=== PATIENT | female | born 1985 | race Caucasian/White ===

== ENCOUNTER 2021-08-01 10:09 | Inpatient (IN) ==
[2021-08-01] MEDS ORDERED: OXYTOCIN 30 UNITS/500 ML BAG IV PRN ×2 (10:37→17:10)
--- NOTE | 2021-08-01 10:43 | History & Physical Report ---
Date of Service August 01, 2021 Assessment & Plan (1) Insulin dependent diabetes mellitus: (2) with 39 completed weeks gestation: Plan: admit for labor, gbs neg. expectant management. epidural on demand. arom/pit as indicated. History of Present Illness Chief Complaint: contracctions Primary Care Provider: Leslie Cordero DO Patient is a 35yowf with iup at 39 3/7 weeks with onset of contractions this am q 5 min, painful. no lof/vb. +fm. complicated by insulin requiring GDM. Last growth us on 07/23 showed efw 97%. Patient counseled about shoulder dystocia and scheduled for induction 08/02. otherwise uncomplicated labs--O+/ab-/ri/rprnr/hepb-/hiv-/gc/ct-/ cf/sma -/low risk panorama /gbs neg Allergies Allergy/AdvReac Type Severity Reaction Status Date / Time No Known Drug Allergies Allergy Unknown Verified 07/30/21 16:10 Home Medications Medication Instructions Recorded Confirmed Type pantoprazole 40 mg tablet,delayed 40 mg PO DAILY 09/26/19 07/30/21 History release prenat.vits,lakeshia,rhd-lluo-senfz 1 tab PO DAILY 12/21/20 07/30/21 History acetone (urine) test (Ketone Urine #50 ea 01/15/21 07/30/21 Rx Test) blood sugar diagnostic (OneTouch #150 ea 01/20/21 07/30/21 Rx Ultra Blue Test Strip) lancets 33 gauge (OneTouch Delica #150 ea 01/20/21 07/30/21 Rx Lancets) promethazine 25 mg tablet 25 mg PO TID PRN #20 tab 01/22/21 07/30/21 Rx insulin NPH isoph U-100 human 100 8 unit SUBCUT QPM #15 ml 07/01/21 07/30/21 Rx unit/mL (3 mL) subcutaneous pen (Novolin N Flexpen) insulin aspart U-100 100 unit/mL 5 unit SUBCUT BID #15 ml 07/01/21 07/30/21 Rx (3 mL) subcutaneous pen (Novolog Flexpen U-100 Insulin aspart) pen needle, diabetic 32 gauge x #150 ea 07/01/21 07/30/21 Rx 5/32" (BD Ultra-Fine Opal Pen Needle) amoxicillin PO 07/30/21 07/30/21 History Patient History Medical History Epilepsy Essential tremor GERD (gastroesophageal reflux disease) Gestational hypertension History of gestational hypertension Hx of varicella Obesity Oral contraceptive pill surveillance Surgical History H/O eye surgery Family History Mother Diabetes Hypertension Gestational diabetes Father Hypertension Asthma Grandmother (Maternal) Hypertension Stroke Myocardial infarction Bleeding disorder Grandmother (Paternal) Stroke Myocardial infarction Diabetes Hypertension Grandfather (Paternal) Diabetes Hypertension Aunt Thyroid disease Family/Other Cleft lip Other Cervical cancer Denies family history of Ovarian cancer Breast cancer Colorectal cancer Social History (Updated 12/21/20 @ 08:57 by Teresa Hernandez) Smoking Status: Never smoker Hx Alcohol Use: No Hx Substance Use: No Preferred Language: Turkmen Developer Architect Required: No Beliefs That Will Affect Care: None marital status: marital status details: Moise Daley (30) [phone] Current Living Situation: Spouse and Family Current Living Situation Comment: lives with spouse, daughter, 2 dogs current occupational status: employed 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 Feels Safe at Home: Yes Assistive Devices: Glasses OB History g1--11/25, , 7#, gdm BUFFER INFLATED PAD History noncontributory Physical Exam Constitutional: WD/WN, vitals as above Gastrointestinal (Abdomen): soft, gravid, nt Psychiatric: A+Ox3, euthymic affect Genitourinary: cx--5+/80/-2, bulging bag toco--q3-5min efm--140 with mod variability, small accels, no decels Results & Data ([facility]) Vital Signs (Past 12 Hours) Vital Signs Pulse BP 08/01/21 10:31 88 162/90 H Coding Level of Care Code None Diagnoses Insulin dependent diabetes mellitus with 39 completed weeks gestation Z3A.39
[2021-08-01 11:03] LABS: Hematocrit (blood only) 35.5 % (37-47); Hemoglobin 11.8 g/dL (12.0-16.0); Mean Corpuscular Hemoglobin 27.6 pg (25-34); Mean Corpuscular Hgb Conc 33.2 g/dL (32-36); Mean Corpuscular Volume 82.9 fL (80-100); Mean Platelet Volume 11.4 fL (7.4-10.4); Platelet Count 207 K/uL (130-400); RDW Coefficient of Variation 13.3 % (11.5-14.5); RDW Standard Deviation 39.8 fL (36.4-46.3); Red Blood Count 4.28 M/uL (4.2-5.4)
[2021-08-01] MEDS: LACTATED RINGER'S 1,000 ML IV PRN ×3 (11:30→17:12)
[2021-08-01] MEDS ORDERED: fentaNYL citrate 100 MCG/2 ML VIAL ONE (12:33)
[2021-08-01] MEDS ORDERED: ePHEDrine sulfate 50 MG/ML AMP ONE (12:33)
[2021-08-01] MEDS ORDERED: SODIUM CHLORIDE 0.9% INJ 10 ML VIAL ONE ×2 (12:33→20:45)
[2021-08-01] MEDS ORDERED: fentaNYL 2MCG/ML ROPIVACAINE 1.25MG/ML 100 ML BAG EPI ONE (12:33)
[2021-08-01] MEDS ORDERED: BUPIVACAINE 0.25% 30 ML VIAL ONE ×2 (12:33→20:46)
--- NOTE | 2021-08-01 12:51 | Anesthesiology Consultation ---
Date of Service August 01, 2021 Assessment & Plan (1) Encounter for pre-operative examination: Chart Review Chart Review: Acceptable Risk for Surgery and Patient NOT seen in Pre Admission Testing Consults Requested none Proposed Anesthesia Risk / Benefits Reviewed With: PT / POA / Parent / Guardian, Accepts Plan and Informed Consent Obtained History Allergies Allergy/AdvReac Type Severity Reaction Status Date / Time No Known Drug Allergies Allergy Unknown Verified 07/30/21 16:10 Medications Home Medications Medication Instructions Recorded Confirmed Last Taken pantoprazole 40 mg tablet,delayed 40 mg PO DAILY 09/26/19 07/30/21 06/24/21 07:00 release prenat.vits,lakeshia,civ-kmyq-rvleg 1 tab PO DAILY 12/21/20 07/30/21 06/24/21 07:00 acetone (urine) test (Ketone Urine #50 ea 01/15/21 07/30/21 Unknown Test) blood sugar diagnostic (OneTouch #150 ea 01/20/21 07/30/21 Unknown Ultra Blue Test Strip) lancets 33 gauge (OneTouch Delica #150 ea 01/20/21 07/30/21 Unknown Lancets) promethazine 25 mg tablet 25 mg PO TID PRN #20 tab 01/22/21 07/30/21 Unknown insulin NPH isoph U-100 human 100 8 unit SUBCUT QPM #15 ml 07/01/21 07/30/21 Unknown unit/mL (3 mL) subcutaneous pen (Novolin N Flexpen) insulin aspart U-100 100 unit/mL 5 unit SUBCUT BID #15 ml 07/01/21 07/30/21 Unknown (3 mL) subcutaneous pen (Novolog Flexpen U-100 Insulin aspart) pen needle, diabetic 32 gauge x #150 ea 07/01/21 07/30/21 Unknown 5/32" (BD Ultra-Fine Opal Pen Needle) amoxicillin PO 07/30/21 07/30/21 Unknown Past Medical History Medical History Epilepsy Essential tremor GERD (gastroesophageal reflux disease) Gestational hypertension History of gestational hypertension Hx of varicella Obesity Oral contraceptive pill surveillance gestational diabetes sinus infection being treated with amoxicillin since Exercise / Class Metabolic Activity II 4-5 Yardwork/Stairs/Walk up hill Past Family History Family History Mother Diabetes Hypertension Gestational diabetes Father Hypertension Asthma Grandmother (Maternal) Hypertension Stroke Myocardial infarction Bleeding disorder Grandmother (Paternal) Stroke Myocardial infarction Diabetes Hypertension Grandfather (Paternal) Diabetes Hypertension Aunt Thyroid disease Family/Other Cleft lip Other Cervical cancer Denies family history of Ovarian cancer Breast cancer Colorectal cancer Past Surgical History Surgical History H/O eye surgery Past Anesthesia History No Hx of Anesthesia Complications History of PONV No Hx of PONV and No Hx of Motion Sickness Social History Smoking Status: Never smoker Hx Alcohol Use: No Hx Substance Use: No substance use type: does not use Physical Exam Vital Signs Last Vital Signs Temp 36.6 C 08/01/21 10:26 Pulse 83 08/01/21 12:46 Resp 18 08/01/21 10:26 BP 175/83 H 08/01/21 12:31 Pulse Ox 100 08/01/21 12:46 ENMT Mouth: no dentition abnormality Thyromental Distance: > or= 3.5 Finger Breadths Mallampati Class: II Neck normal visual inspection Respiratory normal respiratory effort Auscultation: lungs clear to auscultation bilaterally Cardiovascular Rate/Rhythm: regular rate and regular rhythm Psychiatric Orientation: alert and oriented x 3 Testing Laboratory Results 08/01/21 10:55 08/01/21 10:58 POC Glucose 100 H
[2021-08-01] MEDS ORDERED: ONDANSETRON INJ 2 MG/ML 2 ML VIAL ONE (13:01)
--- NOTE | 2021-08-01 15:16 | Labor Progress Brief Note ---
Date of Service August 01, 2021 Subjective comfortable, sugars controlled Assessment & Plan (1) with 39 completed weeks gestation: (2) Insulin dependent diabetes mellitus: Plan: continue current management. fetus category one. thin mec noted with arom. recheck in a couple of hours. Admission and Anticipated Discharge Date Admission Date: August 01, 2021 Physical Exam Physical Exam: cx--7/80/-1 arom--thin green mec toco--q3-4min efm--120s wtih mod varibility, small accels, no decels Results & Data ([facility]) Vital Signs (Past 12 Hours) Vital Signs Temp Pulse Resp BP Pulse Ox 08/01/21 15:10 90 118/57 L 08/01/21 15:02 82 100/55 L 08/01/21 14:50 79 101/51 L 08/01/21 14:41 81 97/50 L 08/01/21 14:31 84 98/48 L 08/01/21 14:11 83 98/60 L 98 08/01/21 14:06 78 97 08/01/21 14:01 84 99/58 L 98 08/01/21 13:56 81 97 08/01/21 13:51 79 98 08/01/21 13:49 82 94/53 L 08/01/21 13:46 96 H 99 08/01/21 13:41 77 99 08/01/21 13:38 98 H 93/52 L 08/01/21 13:36 94 H 99 08/01/21 13:35 89 100/55 L 08/01/21 13:32 100 H 93/55 L 08/01/21 13:31 99 H 99 08/01/21 13:29 90 101/51 L 08/01/21 13:27 93 H 115/53 L 08/01/21 13:26 90 100 08/01/21 13:21 81 100 08/01/21 13:17 68 104/51 L 08/01/21 13:16 96 H 100 08/01/21 13:14 86 149/71 H 08/01/21 13:11 96 H 160/73 H 100 08/01/21 13:08 86 173/73 H 08/01/21 13:06 82 100 08/01/21 13:05 81 180/89 H 08/01/21 13:02 83 189/79 H 08/01/21 13:01 88 100 08/01/21 12:59 86 155/79 H 08/01/21 12:56 90 143/85 H 100 08/01/21 12:51 87 100 08/01/21 12:46 83 100 08/01/21 12:31 83 175/83 H 08/01/21 12:21 82 160/88 H 08/01/21 12:11 90 157/83 H 08/01/21 12:00 82 165/85 H 08/01/21 11:50 90 168/86 H 08/01/21 11:40 83 181/92 H 08/01/21 10:50 100 H 143/82 H 08/01/21 10:40 93 H 149/84 H 08/01/21 10:31 88 162/90 H 08/01/21 10:30 36.6 C 81 18 97/50 L 08/01/21 10:26 36.6 C 18 Coding Level of Care Code None Diagnoses with 39 completed weeks gestation Z3A.39 Insulin dependent diabetes mellitus
[2021-08-01] MEDS ORDERED: NALBUPHINE HCL INJ 10 MG/ML AMP IV PRN (17:25)
[2021-08-01] MEDS ORDERED: ONDANSETRON INJ 2 MG/ML 2 ML VIAL IV PRN (17:25)
[2021-08-01] MEDS ORDERED: diphenhydrAMINE 50 MG/ML VIAL IV PRN (17:25)
[2021-08-01] MEDS ORDERED: NALOXONE HCL 0.4 MG/1 ML VIAL/CARP IV PRN (17:25)
[2021-08-01] MEDS ORDERED: NALOXONE HCL 1 MG in SODIUM CHLORIDE 0.9% 1000ML 1,000 ML IV PRN (17:25)
[2021-08-01] MEDS ORDERED: ePHEDrine sulfate 50 MG/ML AMP IV PRN (17:25)
[2021-08-01] MEDS ORDERED: fentaNYL 2MCG/ML ROPIVACAINE 1.25MG/ML 100 ML BAG EPI PRN ×2 (17:25→21:15)
--- NOTE | 2021-08-01 19:01 | Labor Progress Brief Note ---
Date of Service August 01, 2021 Subjective feeling pressure Assessment & Plan (1) with 39 completed weeks gestation: (2) Insulin dependent diabetes mellitus: Plan: cervix thinning out. continue to go up on the pitocin. Fetus overall category one. anticipate . Admission and Anticipated Discharge Date Admission Date: August 01, 2021 Physical Exam Physical Exam: cx--7-8/100/-2 toco--q2-4min, pit at 1 efm--150s wtih mod variability, accels to 170s, rare variable Results & Data ([facility]) Vital Signs (Past 12 Hours) Vital Signs Temp Pulse Resp BP Pulse Ox 08/01/21 18:49 86 139/67 08/01/21 18:40 85 138/69 08/01/21 18:30 92 H 18 134/76 08/01/21 18:19 92 H 136/74 08/01/21 18:09 84 134/70 08/01/21 17:59 88 18 125/65 08/01/21 17:49 87 137/67 08/01/21 17:39 90 137/71 08/01/21 17:29 87 18 127/73 08/01/21 17:19 85 131/72 08/01/21 17:11 77 129/75 08/01/21 17:02 36.9 C 18 08/01/21 16:59 83 121/64 08/01/21 16:49 92 H 117/60 08/01/21 16:39 93 H 114/60 08/01/21 16:30 18 08/01/21 16:29 96 H 113/59 L 08/01/21 16:20 86 115/57 L 08/01/21 16:10 88 114/62 08/01/21 16:00 89 18 117/63 08/01/21 15:50 86 111/62 08/01/21 15:41 90 118/60 08/01/21 15:29 87 18 114/61 08/01/21 15:19 87 115/60 08/01/21 15:10 90 118/57 L 08/01/21 15:02 82 18 100/55 L 08/01/21 14:50 79 101/51 L 08/01/21 14:41 81 97/50 L 08/01/21 14:31 84 18 98/48 L 08/01/21 14:11 83 98/60 L 98 08/01/21 14:06 78 97 08/01/21 14:01 84 18 99/58 L 98 08/01/21 13:56 81 97 08/01/21 13:51 79 98 08/01/21 13:49 82 94/53 L 08/01/21 13:46 96 H 99 08/01/21 13:41 77 99 08/01/21 13:38 98 H 93/52 L 08/01/21 13:36 94 H 99 08/01/21 13:35 89 100/55 L 08/01/21 13:32 100 H 93/55 L 08/01/21 13:31 99 H 18 99 08/01/21 13:29 90 101/51 L 08/01/21 13:27 93 H 115/53 L 08/01/21 13:26 90 100 08/01/21 13:21 81 100 08/01/21 13:17 68 104/51 L 08/01/21 13:16 96 H 100 08/01/21 13:14 86 149/71 H 08/01/21 13:11 96 H 160/73 H 100 08/01/21 13:08 86 173/73 H 08/01/21 13:06 82 100 08/01/21 13:05 81 180/89 H 08/01/21 13:02 83 18 189/79 H 08/01/21 13:01 88 100 08/01/21 12:59 86 155/79 H 08/01/21 12:56 90 143/85 H 100 08/01/21 12:51 87 100 08/01/21 12:46 83 100 08/01/21 12:31 83 18 175/83 H 08/01/21 12:21 82 160/88 H 08/01/21 12:11 90 157/83 H 08/01/21 12:00 82 18 165/85 H 08/01/21 11:50 90 168/86 H 08/01/21 11:40 83 181/92 H 08/01/21 11:30 18 08/01/21 10:50 100 H 143/82 H 08/01/21 10:40 93 H 149/84 H 08/01/21 10:31 88 18 162/90 H 08/01/21 10:30 36.6 C 81 18 97/50 L 08/01/21 10:26 36.6 C 18 Coding Level of Care Code None Diagnoses with 39 completed weeks gestation Z3A.39 Insulin dependent diabetes mellitus
[2021-08-01] MEDS ORDERED: NURSING L&D Epidural Breakthrough Pain Update ONE (20:36)
[2021-08-02] MEDS ORDERED: SUPERCREAM 0.870% 15 GM JAR EXT PRN (00:18)
[2021-08-02] MEDS ORDERED: OXYTOCIN 30 UNITS/500 ML BAG IV PRN (00:18)
[2021-08-02] MEDS ORDERED: DIPHTHERIA/TETANUS/PERTUSSIS 0.5 ML SYR/VIAL IM ONE (00:18)
[2021-08-02] MEDS ORDERED: HYDROCORTISONE ACETATE 25 MG SUPP PR PRN (00:18)
[2021-08-02] MEDS ORDERED: BENZOCAINE 20% AER SPR 82.5 GM CAN EXT PRN (00:18)
[2021-08-02] MEDS ORDERED: oxyCODONE/ACETAMINOPHEN 5mg/325mg TAB PO PRN (00:18)
[2021-08-02] MEDS ORDERED: ACETAMINOPHEN 325 MG TAB PO PRN (00:18)
[2021-08-02] MEDS ORDERED: bisacodyL 10 MG SUPP PR PRN (00:18)
--- NOTE | 2021-08-02 00:32 | Delivery Summary ---
Vaginal Delivery Summary Date of Service August 02, 2021 Vaginal Delivery Summary and 2nd Degree LAC Pre-operative Diagnosis: at 39 4/7 weeks suspected lga insulin requiring gdm Post-operative Diagnosis: same thin meconium shoulder dystocia Procedure: epidural arom pitocin augmentation shoulder dystocia relieved by delivering posterior arm second degree laceration with repair EBL: 400cc Anesthesia: epidural Procedure: Patient presented to labor and delivery in active labor. She had an epidural placed and then once comfortable, arom for thin meconium. She seemed to slow around 7cm so pitocin augmentation initiated. She then slowly progressed to c/c/+2. She was feeling pressure so we started to push. She pushed with good effort and moved the baby very well to . The patient pushed for a few contractions to deliver a viable male . The head seemed to restitute to maylin. There was a turtle sign noted. A shoulder dystocia was immediately identified. The head of the bed was lowered flat and the patient was placed into [place]bert. Suprapubic pressure was applied and a rocking motion was used back and forth to try to dislodge the shoulder. No undue traction was used on the fetus in attempts to deliver the shoulder. I attempted a screw maneuver anteriorly with the suprapubic pressure but this was unsuccessful. I then had all pressure stopped, I reached posteriorly and was able to delivery the posterior arm, which turned out to be the right arm. The shoulder that was behind the pubis was the left shoulder. The rest of the infant was then delivered. A nuchal cord was reduced during the course of this. The entire episode lasted less than one minute. The Cord was clamped and cut and the fetus handed to the awaiting nurses for attention. While cutting the cord, the baby did take gasps. Cord blood and segment obtained. Placenta delivered spontaneous, intact with a three vessel cord. Cervix/sulci/rectum were intact. A second degree perineal laceration was repaired in the normal standard fashion. Hemostasis obtained with dilute pitocin and fundal massage. Apgars were pending. Baby was moving right arm freely but left arm was still. By the time done with the repair, the baby was moving the hand and lower arm. I explained in detail the shoulder dystocia. Again, I did not use excessive traction to deliver the shoulder. Discussed that the baby was not really moving the left arm and the nerves innervating that arm may have been injured during the course of the delivery . Discussed that she had a pretty significant dystocia requiring several maneuvers to reduce. The patient had been counseled that this baby was big and a shoulder dystocia was a risk , that is why she accepted induction. Discussed that most of these are temporary and resolve. Will make the pediatrican aware and they will follow up. [facility] Vaginal Delivery Charge Delivery Type Details: and 2nd Degree LAC
--- NOTE | 2021-08-02 00:56 | Anesthesia Procedure Note ---
Date of Service August 02, 2021 Anesthesia Post Epidural Note Vital Signs Vital Signs: Temp Pulse Resp BP Pulse Ox 36.8 C 102 H 18 135/65 99 08/01/21 22:30 08/02/21 00:49 08/01/21 22:39 08/02/21 00:49 08/02/21 00:20 Pain Intensity Abdomen: Pain Intensity: 10 Notes Mental Status: alert / awake / arousable Nausea / Vomiting: adequately controlled Pain: adequately controlled Airway Patency, RR, SpO2: stable & adequate BP & HR: stable & adequate Hydration State: stable & adequate Neuraxial Anesthesia: was administered and sensory block is resolving Anesthetic Complications: no major complications apparent and Pt Satisfied with anesthetic care Epidural: Removed without complications and With tip intact
[2021-08-02] MEDS: IBUPROFEN 600 MG TAB PO PRN ×5 (02:15→20:06)
--- NOTE | 2021-08-02 07:19 | Obstetrical Progress Note ---
Date of Service August 02, 2021 Assessment & Plan (1) Vaginal delivery: Doing well. Plan routine care today. BPS have been borderrline. no s/s of pet. She notes she was induced for blood pressures last . Will monitor closely today. Subjective Ambulation: ambulating normally Voiding: no voiding problems Passing Gas:: Yes Diet Tolerance:: regular diet Lochia:: Small Feeding Type:: bottle feeding Physical Exam Constitutional WD/WN, vitals as above Cardiovascular Extremities: + edema (trace); no calf tenderness Gastrointestinal (Abdomen) soft, nt, nd ff/nt at u Results & Data ([facility]) Vital Signs (Past 12 Hours) Vital Signs Temp Pulse Pulse Resp BP BP Pulse Ox 08/02/21 03:15 37.0 C 97 H 18 152/87 H 08/02/21 02:55 106 H 161/73 H 08/02/21 02:37 141 H 148/90 H 08/02/21 02:30 37.0 C 18 08/02/21 02:18 100 H 145/69 H 08/02/21 02:09 93 H 149/70 H 08/02/21 02:00 18 08/02/21 01:59 93 H 152/71 H 08/02/21 01:49 93 H 155/72 H 08/02/21 01:39 92 H 148/68 H 08/02/21 01:30 18 08/02/21 01:29 99 H 145/69 H 08/02/21 01:19 95 H 133/63 08/02/21 01:15 18 08/02/21 01:10 93 H 132/65 08/02/21 01:00 18 08/02/21 00:59 96 H 142/77 H 08/02/21 00:49 102 H 135/65 08/02/21 00:45 18 08/02/21 00:39 93 H 136/62 08/02/21 00:37 100 H 147/56 H 08/02/21 00:30 37.0 C 109 H 18 185/118 H 08/02/21 00:23 101 H 146/65 H 08/02/21 00:20 107 H 99 08/02/21 00:19 110 H 146/72 H 08/02/21 00:15 110 H 100 08/02/21 00:10 106 H 97 08/02/21 00:09 107 H 138/67 08/02/21 00:05 105 H 95 08/02/21 00:00 121 H 97 08/01/21 23:55 108 H 99 08/01/21 23:50 103 H 99 08/01/21 23:49 101 H 148/75 H 08/01/21 23:45 96 H 99 08/01/21 23:40 93 H 99 08/01/21 23:39 106 H 141/73 H 08/01/21 23:35 98 H 99 08/01/21 23:30 93 H 99 08/01/21 23:29 86 141/70 H 08/01/21 23:25 90 99 08/01/21 23:20 94 H 99 08/01/21 23:19 93 H 143/73 H 08/01/21 23:15 91 H 100 08/01/21 23:10 87 140/72 99 08/01/21 23:05 88 100 08/01/21 23:00 80 99 08/01/21 22:59 80 140/71 08/01/21 22:55 80 99 08/01/21 22:50 86 99 08/01/21 22:49 80 141/71 H 08/01/21 22:45 79 99 08/01/21 22:40 75 98 08/01/21 22:39 75 18 134/71 08/01/21 22:35 79 98 08/01/21 22:30 36.8 C 75 98 08/01/21 22:29 78 133/71 08/01/21 22:25 76 98 08/01/21 22:20 72 138/68 98 08/01/21 22:15 73 98 08/01/21 22:10 73 130/66 98 08/01/21 22:05 73 98 08/01/21 22:00 83 18 123/59 L 99 08/01/21 21:55 71 99 08/01/21 21:50 72 120/59 L 98 08/01/21 21:45 74 98 08/01/21 21:40 75 98 08/01/21 21:39 75 116/65 08/01/21 21:35 70 98 08/01/21 21:31 73 118/66 08/01/21 21:30 73 98 08/01/21 21:25 69 97 08/01/21 21:20 83 101/59 L 96 08/01/21 21:15 81 97 08/01/21 21:10 81 99/54 L 96 08/01/21 21:05 81 95 08/01/21 21:02 77 111/57 L 08/01/21 21:00 36.8 C 78 18 84/44 L 96 08/01/21 20:55 92 H 98 08/01/21 20:50 82 122/58 L 98 08/01/21 20:45 82 97 08/01/21 20:40 84 98 08/01/21 20:39 75 101/49 L 08/01/21 20:35 84 97 08/01/21 20:30 72 97 08/01/21 20:29 74 104/52 L 08/01/21 20:25 74 98 08/01/21 20:20 70 98 08/01/21 20:19 68 106/53 L 08/01/21 20:15 75 99 08/01/21 20:10 71 99/51 L 99 08/01/21 20:05 81 99 08/01/21 20:01 20 08/01/21 20:00 69 96/51 L 08/01/21 19:49 80 128/60 08/01/21 19:40 94 H 120/58 L 08/01/21 19:30 90 145/80 H 08/01/21 19:19 85 143/76 H
[2021-08-02] MEDS: DOCUSATE SODIUM 100 MG CAP PO SCH ×2 (08:26→20:06)
[2021-08-02] MEDS: PRENATAL VITAMIN 1 TAB PO SCH (08:27)
[2021-08-02 08:35] LABS: Hematocrit (blood only) 32.3 % (37-47); Hemoglobin 10.6 g/dL (12.0-16.0)
[2021-08-03] MEDS: IBUPROFEN 600 MG TAB PO PRN (06:27)
[2021-08-03] MEDS ORDERED: MEASLES, MUMPS & RUBELLA VIRUS VIAL SQ ONE (07:31)
--- NOTE | 2021-08-03 07:38 | Obstetrical Progress Note ---
Date of Service <Syd Balderas DO - Last Filed: 08/03/21 07:40> August 03, 2021 Assessment & Plan <Syd Balderas DO - Last Filed: 08/03/21 07:40> (1) care following vaginal delivery: 35yo PPD 1 s/p at 39 weeks -Continue routine care. BPs have improved. Expect D/C today. -Vitals reviewed- HDS, afebrile -O+, GBS-, Rubella non-immune. MMR today prior to D/C. -Encourage ambulation, regular diet -Pain control with ibuprofen, acetaminophen PRN -Bottle feeding w/o complication -F/u in 6 weeks with OB <Maya Jordan MD, FACOG - Last Filed: 08/03/21 07:46> (1) care following vaginal delivery: Subjective <Syd Balderas DO - Last Filed: 08/03/21 07:40> Ambulation: ambulating normally Voiding: no voiding problems Passing Gas:: Yes Diet Tolerance:: regular diet Lochia:: Moderate Feeding Type:: bottle feeding Current Pain Level(1-10): 0 PPD 1 s/p . Patient seen and examined at bedside. Reports no acute overnight events. BPs have been normal for the past 24hrs. Review of Systems All systems reviewed & are unremarkable except as noted in HPI & below Physical Exam <Syd Balderas DO - Last Filed: 08/03/21 07:40> General: Alert, oriented, no acute distress Cardiac: Regular rate and rhythm, normal S1, S2. No murmurs appreciated. Respiratory: Clear to auscultation b/l with good air flow entry, symmetric chest rise and fall. No wheezes or crackles. No increased work of breathing or accessory muscle use Abdomen: Soft, nontender, nondistended. Fundus firm and palpable at 2 cm below umbilicus. No guarding or rebound. Skin: No rashes or lesions Extremities: Warm, dry, well-perfused with capillary refill <2s b/l. No lower extremity edema, erythema or swelling. Negative Calvin's sign b/l. Results & Data ([facility]) <Syd Balderas DO - Last Filed: 08/03/21 07:40> Vital Signs (Past 12 Hours) Vital Signs Temp Pulse Resp BP Pulse Ox 08/03/21 00:00 36.5 C 77 18 131/75 08/02/21 19:57 36.6 C 85 18 122/76 99 <Maya Jordan MD, FACOG - Last Filed: 08/03/21 07:46> Co-Signing Physician Notes Resident Physician Supervision Note: I was present with Dr. Balderas during the history and exam. I discussed the case with the resident and agree with the findings and plan as documented in the note. Any exceptions or clarifications are listed here: doing well, feng po, voiding, ambulating without problem, af vss, bps are normal, abd soft nt, ff 2 down. ext nt calves. ppd#1, ready to go home, instructions reviewed, f/u 6 wks p p. bottle/rhpos/ rubella non immune--MMR ordered. Documented By: Maya Jordan MD, FACOG
[2021-08-03] MEDS: DOCUSATE SODIUM 100 MG CAP PO SCH (08:00)
[2021-08-03] MEDS: PRENATAL VITAMIN 1 TAB PO SCH (08:00)
[2021-08-03] MEDS ORDERED: PANTOprazole 40 MG TAB PO SCH (09:00)
[2021-08-03] MEDS ORDERED: bisacodyL 5 MG TABEC PO SCH (20:00)
== END 2021-08-03 13:45 | disposition home or self-care (01) | DRG 807 ==
LOC: OPB 10:09 → 4S2 10:10

== ENCOUNTER 2023-04-10 16:48 | Inpatient (IN) ==
[2023-04-10 18:27] LABS: Hematocrit (blood only) 34.5 % (37.0-47.0); Hemoglobin 11.4 g/dl (12.0-16.0); Mean Corpuscular Hemoglobin 27.5 pg (25.0-34.0); Mean Corpuscular Volume 83.3 fL (80.0-100.0); Mean Platelet Volume 12.6 fL (9.4-12.4); Platelet Count 191 K/uL (130-400); RDW Coefficient of Variation 13.8 % (11.5-14.5); RDW Standard Deviation 41.1 fL (36.4-46.3); Red Blood Count 4.14 M/uL (4.20-5.40); White Blood Count 9.24 K/ul (4.8-10.8)
[2023-04-10 18:33] LABS: Alanine Aminotransferase 9 U/L (7-52); Alkaline Phosphatase 118 U/L (34-104); Anion Gap 8 (3-11); Aspartate Aminotransferase 15 U/L (13-39); BUN Creatinine Ratio 16.2 (10-20); Bilirubin,Total 0.3 mg/dl (0.2-1.0); Blood Urea Nitrogen 6 mg/dl (6-23); Calcium 8.7 mg/dl (8.6-10.3); Carbon Dioxide 22 mmol/L (21-32); Chloride 107 mmol/L (98-107); Creatinine Clr Calc Pharmacy 243.2 ml/min; Est GFR (African American) > 150.0 ml/min; Est GFR (Non-African American) 138.5 ml/min; Glucose 97 mg/dl (70-99(Fasting)); Potassium 3.7 mmol/L (3.5-5.1); Sodium 137 mmol/L (136-145)
[2023-04-10] MEDS ORDERED: LABETALOL HCL IV 5 MG/ML 20ML IV STA (19:10)
[2023-04-10] MEDS ORDERED: LIDOCAINE 1% LOCAL 20 ML VIAL INFIL PRN (19:10)
[2023-04-10] MEDS ORDERED: OXYTOCIN 30 UNITS/500 ML BAG IV PRN ×2 (19:10→19:16)
[2023-04-10] MEDS ORDERED: MAG SULFATE 4GM BOLUS FROM BAG IV ONE (19:10)
[2023-04-10] MEDS ORDERED: PENICILLIN G POTASSIUM 6 MU in DEXTROSE 5% 250 ML IV STA (19:22)
--- NOTE | 2023-04-10 19:30 | History & Physical Report ---
Date of Service April 10, 2023 Assessment & Plan (1) Gestational hypertension: (2) Insulin controlled gestational diabetes mellitus (GDM) during : (3) Polyhydramnios: (4) GBS carrier: Plan 37 yo at 36 5/7 wga now admitted with severe gHTN -persistent severe range BPs, will order labetalol x 1, then mag 4g bolus and 2g/hr after. UP:C P -Fetus cat 1 -Labor - will check cervix and plan induction once settled -A2GDM - q2hr BG, q1hr active -GBS+, pcn ordered -epidural prn History of Present Illness Chief Complaint: Elevated BPs Primary Care Provider: Leslie Cordero, DO 37 yo at 36 5/7 wga presented for evaluation from [facility] due to elevated BPs. Was seen in clinic today and noted mild range BPs so sent for further eval. On arrival, denies EISENBERG, vision change, CP, SOB, RUQ/epigastric pain. +FM; denies ctx, LOF, VB. Initial BPs were mild however slowly continued to increase to severe range that remained persistent. 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: G1 2019 at 38 wks 7lbs G2 2020 at 39 wk 9lb 10oz w/ shoulder G3 current regular cycles 2019 neg cotest Allergies Allergy/AdvReac Type Severity Reaction Status Date / Time No Known Drug Allergies Allergy Unknown Verified 04/10/23 19:38 Home Medications Medication Instructions Recorded Confirmed Type loratadine 10 mg tablet (Claritin) 10 mg PO DAILY 10/15/21 04/10/23 History pantoprazole 40 mg tablet,delayed 40 mg PO BID 04/07/22 04/10/23 History release acetone (urine) test (Ketone Urine #50 ea 10/24/22 04/10/23 Rx Test strips) blood sugar diagnostic (OneTouch #150 ea 10/26/22 04/10/23 Rx Verio test strips) blood-glucose meter (OneTouch #1 ea 10/26/22 04/10/23 Rx Verio Meter) lancets 30 gauge (OneTouch Delica #200 ea 10/26/22 04/10/23 Rx Lancets) insulin NPH isoph U-100 human 100 10 unit (0.1 mL) subcut .QHS #15 mL 02/21/23 04/10/23 Rx unit/mL (3 mL) subcutaneous pen (Novolin N FlexPen) pen needle, diabetic 32 gauge x #100 ea 02/21/23 04/10/23 Rx 5/32" (BD Ultra-Fine Opal Pen Needle) ferrous sulfate 325 mg PO Q OTHER DAY 02/22/23 04/10/23 History aspirin 81 mg capsule 81 mg PO DAILY 04/10/23 04/10/23 History [id number] 1 mg 1 tab PO DAILY 04/10/23 04/10/23 History tablet Patient History Medical History (Updated 04/10/23 @ 19:39 by Ciarra Garcia MD) Anxiety Depression Epilepsy no seizure activity since childhood, no meds Essential tremor GERD (gastroesophageal reflux disease) Gestational diabetes current on insulin Gestational hypertension History of gestational hypertension History of shoulder dystocia in prior 2020 delivery 9lbs 10.7 oz Hx of varicella Insulin controlled gestational diabetes mellitus (GDM) during Obesity Polyhydramnios Spontaneous vaginal delivery 11/06/2019 and 08/02/2021- shoulder dystocia 9lbs 10.7 oz Surgical History H/O eye surgery Family History Mother Diabetes Hypertension Gestational diabetes Father Hypertension Asthma Grandmother (Maternal) Hypertension Stroke Myocardial infarction Bleeding disorder Grandmother (Paternal) Stroke Myocardial infarction Diabetes Hypertension Grandfather (Paternal) Diabetes Hypertension Aunt Thyroid disease Family/Other Cleft lip Other Cervical cancer Denies family history of Ovarian cancer Breast cancer Colorectal cancer Social History Smoking Status: Never smoker Do You Dip or Chew Tobacco: No; Hx Alcohol Use: No Hx Substance Use: No Preferred Language: Burundian Communication Ability: Effective Visual Impairment: No Limitations Hearing Ability: Normal R And D Lab Technician Required: No Beliefs That Will Affect Care: None marital status: marital status details: Moise Daley (32) [phone] Current Living Situation: Spouse and Family Current Living Situation Comment: lives with spouse, 2 children, 2 dogs current occupational status: employed 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- [employer] Feels Safe at Home: Yes Safety Concerns: Feels Safe At This Time Assistive Devices: None Physical Exam Genitourinary: OB Exam Abdomen: + vertex (confirmed by bsus) OB Exam Monitor Tracing: + external FHT monitor used, + external uterine monitor used (irritability) and + category I (150/mod/+accel/-decel) Results & Data Vital Signs (Past 12 Hours) Vital Signs Temp Pulse Resp BP 04/10/23 17:23 98.6 F 20 04/10/23 18:46 86 166/84 H 04/10/23 18:33 90 177/85 H 04/10/23 18:16 88 169/85 H 04/10/23 18:03 86 175/84 H 04/10/23 18:02 91 H 191/85 H 04/10/23 17:46 90 149/73 H 04/10/23 17:31 90 152/80 H 04/10/23 17:16 96 H 147/74 H 04/10/23 16:59 92 H 179/80 H Laboratory Results OB Labs: Blood Type O Positive 09/19/22 Antibody Screen NEGATIVE 09/19/22 Hemoglobin 11.4 g/dl (12.0-16.0) L 02/08/23 Hematocrit 33.8 % (37.0-47.0) L 02/08/23 Mean Corpuscular Volume 80.3 fL (80.0-100.0) 09/19/22 Platelet Count 267 K/uL (130-400) 09/19/22 Rubella IgG Antibody Immune (Immune) 09/19/22 Rapid Plasma Reagin Nonreactive (Nonreactive) 09/19/22 Hepatitis B Surface Antigen Neg (Neg) 12/25/20 Hepatitis B Surface Antigen. NON-REACTIVE (NON-REACTIVE) 09/19/22 Hepatitis C Antibody (EIA) NON-REACTIVE (NON-REACTIVE) 09/19/22 HIV (1&2) Ab and P24 Ag, 4th Gener Neg (Neg) 12/25/20 HIV (1&2) Ag and Ab Confirmation NON-REACTIVE (NON-REACTIVE) 09/19/22 OB Optional Labs: Chlamydia trachomatis RNA Not Detected (NotDetected) 09/19/22 Neisseria gonorrhoeae RNA Not Detected (NotDetected) 09/19/22 Thyroid Stimulating Hormone (TSH) 0.92 uIU/mL (0.30-4.50) 03/31/22 Labs Reviewed: No labs to pull forward from prior , HK low risk panorama--akh declines afp GBS+ 04/10/23 04/10/23 04/10/23 Range/Units 19:20 18:00 17:59 WBC (4.8-10.8) K/ul RBC (4.20-5.40) M/uL Hgb (12.0-16.0) g/dl Hct (37.0-47.0) % MCV (80.0-100.0) fL MCH (25.0-34.0) pg MCHC (32.0-36.0) g/dL RDW Std Deviation (36.4-46.3) fL RDW Coeff of Berenice (11.5-14.5) % Plt Count (130-400) K/uL MPV (9.4-12.4) fL Sodium 137 (136-145) mmol/L Potassium 3.7 (3.5-5.1) mmol/L Chloride 107 (98-107) mmol/L Carbon Dioxide 22 (21-32) mmol/L Anion Gap 8 (3-11) BUN 6 (6-23) mg/dl Creatinine 0.37 L (0.6-1.2) mg/dl Est Cr Clr Drug Dosing 243.2 ml/min Est GFR ( Amer) > 150.0 ml/min Est GFR (Non-Af Amer) 138.5 ml/min BUN/Creatinine Ratio 16.2 (10-20) Glucose 97 (70-99(Fasting)) mg/dl POC Glucose 90 (70-99) mg/dl Calcium 8.7 (8.6-10.3) mg/dl Total Bilirubin 0.3 (0.2-1.0) mg/dl AST 15 (13-39) U/L ALT 9 (7-52) U/L Alkaline Phosphatase 118 H (34-104) U/L Total Protein 6.0 (6.0-8.3) gm/dl Albumin 3.0 L (3.4-5.0) gm/dl Globulin 3.0 (2.5-4.0) gm/dl Albumin/Globulin Ratio 1.0 (0.9-2) Ur Random Creatinine Pending U Random Total Protein Pending Protein/Creatinin Ratio Pending 04/10/23 Range/Units 17:59 WBC 9.24 (4.8-10.8) K/ul RBC 4.14 L (4.20-5.40) M/uL Hgb 11.4 L (12.0-16.0) g/dl Hct 34.5 L (37.0-47.0) % MCV 83.3 (80.0-100.0) fL MCH 27.5 (25.0-34.0) pg MCHC 33.0 (32.0-36.0) g/dL RDW Std Deviation 41.1 (36.4-46.3) fL RDW Coeff of Berenice 13.8 (11.5-14.5) % Plt Count 191 (130-400) K/uL MPV 12.6 H (9.4-12.4) fL Sodium (136-145) mmol/L Potassium (3.5-5.1) mmol/L Chloride (98-107) mmol/L Carbon Dioxide (21-32) mmol/L Anion Gap (3-11) BUN (6-23) mg/dl Creatinine (0.6-1.2) mg/dl Est Cr Clr Drug Dosing ml/min Est GFR ( Amer) ml/min Est GFR (Non-Af Amer) ml/min BUN/Creatinine Ratio (10-20) Glucose (70-99(Fasting)) mg/dl POC Glucose (70-99) mg/dl Calcium (8.6-10.3) mg/dl Total Bilirubin (0.2-1.0) mg/dl AST (13-39) U/L ALT (7-52) U/L Alkaline Phosphatase (34-104) U/L Total Protein (6.0-8.3) gm/dl Albumin (3.4-5.0) gm/dl Globulin (2.5-4.0) gm/dl Albumin/Globulin Ratio (0.9-2) Ur Random Creatinine U Random Total Protein Protein/Creatinin Ratio Diagnostic Findings 5/31 EFW 75% 6lb 12 oz post plac, last DVP 10 Coding Level of Care Code None Diagnoses Gestational hypertension O13.9 Insulin controlled gestational diabetes mellitus (GDM) during O24.414 Polyhydramnios O40.9XX0 GBS carrier Z22.330
[2023-04-10] MEDS: LACTATED RINGER'S 1,000 ML IV PRN (19:40)
[2023-04-10] MEDS: MAGNESIUM SULFATE / WTR 40 GM/1,000 ML BAG IV SCH (19:44)
[2023-04-10 19:58] LABS: Total Protein Urine Random 28.5 mg/dl (0-11.9)
[2023-04-10 20:04] LABS: Creatinine Urine Random 122.9 mg/dl; Protein Creatinine Ratio Urine 0.2 (0-0.2)
[2023-04-10] MEDS ORDERED: ePHEDrine sulfate 50 MG/ML AMP ONE (23:04)
[2023-04-10] MEDS ORDERED: LIDOCAINE 2%/EPINEPHRINE 1:200,000 20 ML PF ONE (23:06)
[2023-04-10] MEDS ORDERED: fentaNYL citrate PF 100 MCG/2 ML VIAL ONE (23:06)
[2023-04-10] MEDS ORDERED: BUPIVACAINE 0.25% PF 30 ML VIAL ONE (23:06)
[2023-04-10] MEDS ORDERED: SODIUM CHLORIDE 0.9% PF INJ 10 ML VIAL ONE (23:06)
[2023-04-10] MEDS ORDERED: fentaNYL 2MCG/ML ROPIVACAINE 1.25MG/ML 100 ML BAG EPI ONE (23:07)
[2023-04-10] MEDS: PENICILLIN G POTASSIUM 3 MU in DEXTROSE 5% 100 ML IV PRN (23:48)
[2023-04-11] MEDS ORDERED: fentaNYL citrate PF 100 MCG/2 ML VIAL EPI STA (00:08)
[2023-04-11] MEDS ORDERED: NALBUPHINE HCL INJ 10 MG/ML AMP IV PRN (00:08)
[2023-04-11] MEDS ORDERED: BUPIVACAINE 0.25% PF 30 ML VIAL EPI STA (00:08)
[2023-04-11] MEDS ORDERED: fentaNYL citrate PF 100 MCG/2 ML VIAL EPI PRN (00:08)
[2023-04-11] MEDS ORDERED: LIDOCAINE 2% MPF LOCAL 5 ML VIAL EPI PRN (00:08)
[2023-04-11] MEDS ORDERED: ONDANSETRON INJ 2 MG/ML 2 ML VIAL IV PRN (00:08)
[2023-04-11] MEDS ORDERED: SODIUM CHLORIDE 0.9% PF INJ 10 ML VIAL EPI STA (00:08)
[2023-04-11] MEDS ORDERED: fentaNYL 2MCG/ML ROPIVACAINE 1.25MG/ML 100 ML BAG EPI PRN (00:08)
[2023-04-11] MEDS ORDERED: diphenhydrAMINE 50 MG/ML VIAL IV PRN (00:08)
[2023-04-11] MEDS ORDERED: BUPIVACAINE 0.25% PF 30 ML VIAL EPI PRN (00:08)
[2023-04-11] MEDS ORDERED: ROPIVACAINE 0.5% PF 5 MG/ML 20 ML VIAL EPI PRN (00:08)
[2023-04-11] MEDS ORDERED: NALOXONE HCL 0.4 MG/1 ML VIAL/CARP IV PRN (00:08)
[2023-04-11] MEDS ORDERED: PROMETHAZINE HCL 6.25 MG in SODIUM CHLORIDE 0.9% 50 ML IV PRN (00:08)
[2023-04-11] MEDS ORDERED: NALOXONE HCL 1 MG in SODIUM CHLORIDE 0.9% 1000ML 1,000 ML IV PRN (00:08)
[2023-04-11] MEDS ORDERED: LIDOCAINE 2%/EPINEPHRINE 1:200,000 20 ML PF EPI STA (00:08)
[2023-04-11] MEDS ORDERED: SODIUM CHLORIDE 0.9% PF INJ 10 ML VIAL EPI PRN (00:08)
--- NOTE | 2023-04-11 00:08 | Anesthesiology Consultation ---
Date of Service April 11, 2023 Assessment & Plan Chart Review Chart Review: Patient NOT seen in Pre Admission Testing and Acceptable Risk for Labor Epidural Consults Requested none ASA ASA2 Proposed Anesthesia Anesthesia Type: Labor Epidural Risk / Benefits Reviewed With: PT / POA / Parent / Guardian, Accepts Plan and Informed Consent Obtained History Height/Weight Height: 5 ft 1 in Weight: 109.769 kg Allergies Allergy/AdvReac Type Severity Reaction Status Date / Time No Known Drug Allergies Allergy Unknown Verified 04/10/23 19:38 Medications Home Medications Medication Instructions Recorded Confirmed Last Taken loratadine 10 mg tablet (Claritin) 10 mg PO DAILY 10/15/21 04/10/23 04/10/23 pantoprazole 40 mg tablet,delayed 40 mg PO BID 04/07/22 04/10/23 04/10/23 release acetone (urine) test (Ketone Urine #50 ea 10/24/22 04/10/23 Unknown Test strips) blood sugar diagnostic (OneTouch #150 ea 10/26/22 04/10/23 Unknown Verio test strips) blood-glucose meter (OneTouch #1 ea 10/26/22 04/10/23 Unknown Verio Meter) lancets 30 gauge (OneTouch Delica #200 ea 10/26/22 04/10/23 Unknown Lancets) insulin NPH isoph U-100 human 100 10 unit (0.1 mL) subcut .QHS #15 mL 02/21/23 04/10/23 04/09/23 unit/mL (3 mL) subcutaneous pen (Novolin N FlexPen) pen needle, diabetic 32 gauge x #100 ea 02/21/23 04/10/23 Unknown 32" (BD Ultra-Fine Opal Pen Needle) ferrous sulfate 325 mg PO Q OTHER DAY 02/22/23 04/10/23 04/08/23 aspirin 81 mg capsule 81 mg PO DAILY 04/10/23 04/10/23 04/10/23 [id number] 1 mg 1 tab PO DAILY 04/10/23 04/10/23 04/10/23 tablet Active Medications Generic Name Dose Route Start Last Admin Trade Name Freq PRN Reason Stop Dose Admin Lactated Ringer's 1,000 mls @ 125 mls/hr 04/10/23 19:10 04/10/23 23:49 Lr IV 04/12/23 19:09 0 mls/hr .Q8H PRN Infusion L&D Protocol Protocol Penicillin G Potassium 3 mu/ 106 mls @ 100 mls/hr 04/10/23 22:10 04/10/23 23:48 Dextrose IV 04/20/23 22:09 100 mls/hr Q4H PRN Administration GBS(+) Until Delivery Magnesium Sulfate 40 gm in 1,000 mls @ 50 mls/hr 04/10/23 19:15 04/10/23 23:00 Magnesium Sulfate / Wtr IV 05/10/23 19:14 50 mls/hr .Q20H ANKUR Infusion Oxytocin 30 units in 500 mls @ 12 mls/hr 04/10/23 19:16 04/10/23 23:00 Pitocin IV 04/12/23 19:15 0.72 units/hr .Q24H PRN 12 mls/hr Labor Induction/Augmentation Titration Protocol 0.72 UNITS/HR Past Medical History Medical History (Updated 04/10/23 @ 19:39 by Ciarra Garcia MD) Anxiety Depression Epilepsy no seizure activity since childhood, no meds Essential tremor GERD (gastroesophageal reflux disease) Gestational diabetes current on insulin Gestational hypertension History of gestational hypertension History of shoulder dystocia in prior 2020 delivery 9lbs 10.7 oz Hx of varicella Insulin controlled gestational diabetes mellitus (GDM) during Obesity Polyhydramnios Spontaneous vaginal delivery 11/06/2019 and 08/02/2021- shoulder dystocia 9lbs 10.7 oz Exercise / Class Metabolic Activity II 4-5 Yardwork/Stairs/Walk up hill Past Family History Family History Mother Diabetes Hypertension Gestational diabetes Father Hypertension Asthma Grandmother (Maternal) Hypertension Stroke Myocardial infarction Bleeding disorder Grandmother (Paternal) Stroke Myocardial infarction Diabetes Hypertension Grandfather (Paternal) Diabetes Hypertension Aunt Thyroid disease Family/Other Cleft lip Other Cervical cancer Denies family history of Ovarian cancer Breast cancer Colorectal cancer Past Surgical History Surgical History H/O eye surgery Past Anesthesia History No Hx of Anesthesia Complications and No Family Hx of Anesthesia Complications History of PONV No Hx of PONV and No Hx of Motion Sickness Social History Smoking Status: Never smoker Do You Dip or Chew Tobacco: No Hx Alcohol Use: No Hx Substance Use: No substance use type: does not use Physical Exam Vital Signs Last Vital Signs Temp 36.8 C 04/10/23 23:00 Pulse 85 04/11/23 00:05 Resp 20 04/10/23 23:00 BP 114/65 04/11/23 00:04 Pulse Ox 98 04/11/23 00:05 ENMT Mouth: no dentition abnormality Thyromental Distance: > or= 3.5 Finger Breadths Mallampati Class: II Neck normal visual inspection Respiratory normal respiratory effort Auscultation: lungs clear to auscultation bilaterally Cardiovascular Rate/Rhythm: regular rate and regular rhythm Psychiatric Orientation: alert Testing Laboratory Results 04/10/23 17:59 04/10/23 17:59 Blood Type O Positive 04/10/23 18:00 Antibody Screen NEGATIVE 04/10/23 18:00 04/10/23 04/10/23 04/10/23 23:02 21:01 19:20 POC Glucose 92 109 H 90
[2023-04-11] MEDS: ePHEDrine sulfate 50 MG/ML AMP IV PRN ×2 (01:21→01:30)
[2023-04-11] MEDS: LACTATED RINGER'S 1,000 ML IV PRN ×3 (01:33→13:41)
[2023-04-11] MEDS: PENICILLIN G POTASSIUM 3 MU in DEXTROSE 5% 100 ML IV PRN ×2 (03:44→07:45)
--- NOTE | 2023-04-11 04:33 | Labor Progress Brief Note ---
Date of Service April 11, 2023 Subjective comfortable w/ epidural Assessment & Plan (1) Pre-eclampsia, severe: (2) Insulin controlled gestational diabetes mellitus (GDM) during : (3) Polyhydramnios: (4) GBS carrier: Plan 37 yo at [facility] 5/7 wga admitted with pre-eclampsia w/ SF -BPs improved on mag and w/ epidural, UOP just adequate. Continue mag -Fetus cat 1 -Labor - pit at 18, now s/p arom -A2GDM - q2hr BG, q1hr active - wnl -GBS+, pcn ordered -epidural in place Admission and Anticipated Discharge Date Admission Date: April 10, 2023 Physical Exam Genitourinary: Manual OB Exam: + cervical dilation (4.5), + cervical effacement 50%, + station -2 (anterior) and + amniotic fluid (arom clear) OB Exam Monitor Tracing: + external FHT monitor used, + external uterine monitor used (irritability) and + category I (140/mod/+accel/-decel) Results & Data Vital Signs (Past 12 Hours) Vital Signs Temp Pulse Resp BP Pulse Ox 04/11/23 03:00 20 04/10/23 23:00 20 04/10/23 17:23 98.6 F 20 04/11/23 04:20 98 H 98 04/11/23 04:15 100 H 98 04/11/23 04:12 97 H 114/57 L 92 04/11/23 04:10 92 H 97 04/11/23 04:05 95 H 97 04/11/23 04:00 101 H 18 97 04/11/23 03:58 98 H 120/57 L 04/11/23 03:57 105 H 92 04/11/23 03:55 101 H 97 04/11/23 03:50 96 H 98 04/11/23 03:45 101 H 98 04/11/23 03:42 96 H 118/59 L 04/11/23 03:40 95 H 98 04/11/23 03:35 102 H 97 04/11/23 03:30 96 H 18 96 04/11/23 03:27 96 H 116/55 L 04/11/23 03:25 93 H 97 04/11/23 03:20 99 H 97 04/11/23 03:15 96 H 96 04/11/23 03:14 92 H 120/57 L 04/11/23 03:10 98 H 97 04/11/23 03:05 99 H 97 04/11/23 03:00 101 H 98 04/11/23 02:56 97 H 118/56 L 04/11/23 02:55 99.0 F 94 H 20 98 04/11/23 02:50 104 H 97 04/11/23 02:45 97 H 96 04/11/23 02:42 99 H 121/58 L 04/11/23 02:40 108 H 97 04/11/23 02:35 103 H 97 04/11/23 02:30 111 H 96 04/11/23 02:25 99 H 97 04/11/23 02:26 99 H 111/54 L 04/11/23 02:22 99 H 118/59 L 04/11/23 02:20 108 H 96 04/11/23 02:21 105 H 93 04/11/23 02:16 97 H 124/57 L 04/11/23 02:15 103 H 97 04/11/23 02:10 96 H 96 04/11/23 02:11 102 H 109/55 L 04/11/23 02:06 98 H 116/57 L 04/11/23 02:05 96 H 98 04/11/23 02:00 107 H 16 98 04/11/23 02:01 110 H 91/53 L 04/11/23 01:55 100 H 97 04/11/23 01:56 101 H 118/55 L 04/11/23 01:50 101 H 98 04/11/23 01:51 105 H 109/58 L 93 04/11/23 01:45 100 H 97 04/11/23 01:46 100 H 110/58 L 04/11/23 01:40 98 H 98 04/11/23 01:41 99 H 105/56 L 04/11/23 01:35 99 H 99/56 L 98 04/11/23 01:33 114 H 99/65 L 04/11/23 01:31 114 H 95/63 L 04/11/23 01:30 113 H 98 04/11/23 01:29 120 H 93/60 L 04/11/23 01:25 111 H 99 04/11/23 01:26 114 H 110/64 04/11/23 01:23 72 82/48 L 04/11/23 01:20 99 04/11/23 01:20 65 04/11/23 01:20 76 82/45 L 04/11/23 01:18 74 83/44 L 04/11/23 01:15 64 99 04/11/23 01:10 61 99 04/11/23 01:01 18 04/11/23 01:01 18 04/11/23 01:05 74 99 04/11/23 01:04 68 90/51 L 04/11/23 01:02 64 93 04/11/23 01:00 68 98 04/11/23 00:55 79 100 04/11/23 00:50 100 04/11/23 00:50 102 H 04/11/23 00:50 93 H 126/67 04/11/23 00:48 82 89 L 04/11/23 00:45 16 04/11/23 00:45 68 16 100 04/11/23 00:30 16 04/11/23 00:30 16 04/11/23 00:40 67 100 04/11/23 00:35 80 100 04/11/23 00:33 76 106/57 L 04/11/23 00:30 77 98 04/11/23 00:29 73 87 L 04/11/23 00:26 70 108/61 04/11/23 00:25 70 100 04/11/23 00:20 70 100 04/11/23 00:18 75 108/60 04/11/23 00:15 79 16 100 04/11/23 00:13 72 108/59 L 04/11/23 00:10 81 100 04/11/23 00:07 84 110/59 L 04/11/23 00:05 85 18 98 04/11/23 00:04 85 114/65 04/11/23 00:02 85 91 04/11/23 00:03 75 107/58 L 04/11/23 00:00 83 18 100 04/10/23 23:59 96 H 208/158 H 04/10/23 23:56 78 94 04/10/23 23:55 74 95 04/10/23 23:50 88 93 04/10/23 23:51 85 91 04/10/23 23:45 88 93 04/10/23 23:40 78 99 04/10/23 23:35 100 04/10/23 23:35 79 04/10/23 23:35 77 94 04/10/23 23:30 80 100 04/10/23 23:26 74 114/56 L 04/10/23 23:25 74 100 04/10/23 23:24 73 91 04/10/23 23:20 82 100 04/10/23 23:15 74 100 04/10/23 23:10 81 100 04/10/23 23:05 80 100 04/10/23 23:00 98.2 F 81 20 99 04/10/23 22:55 81 95 04/10/23 22:50 83 98 04/10/23 22:45 77 97 04/10/23 22:40 83 100 04/10/23 22:35 97 H 98 04/10/23 22:30 90 97 04/10/23 22:25 98 04/10/23 22:25 87 04/10/23 22:25 86 116/58 L 04/10/23 22:20 92 H 98 04/10/23 22:15 87 99 04/10/23 22:10 88 97 04/10/23 22:01 18 04/10/23 22:01 18 04/10/23 22:05 92 H 96 04/10/23 22:00 90 98 04/10/23 21:55 97 H 98 04/10/23 21:50 90 98 04/10/23 21:45 92 H 98 04/10/23 21:39 18 04/10/23 21:39 18 04/10/23 21:40 91 H 97 04/10/23 21:35 94 H 98 04/10/23 21:30 91 H 98 04/10/23 21:25 91 H 98 04/10/23 21:22 92 H 142/64 H 04/10/23 21:20 91 H 97 04/10/23 20:00 16 04/10/23 20:00 16 04/10/23 21:15 96 H 99 04/10/23 20:00 16 04/10/23 20:00 16 04/10/23 20:15 18 04/10/23 20:15 18 04/10/23 20:30 18 04/10/23 20:30 18 04/10/23 21:10 90 100 04/10/23 21:09 89 156/66 H 04/10/23 21:05 87 98 04/10/23 21:00 89 99 04/10/23 20:55 94 H 99 04/10/23 20:53 93 H 138/64 04/10/23 20:50 94 H 99 04/10/23 20:45 92 H 18 98 04/10/23 20:40 91 H 99 04/10/23 20:35 91 H 98 04/10/23 20:30 98 04/10/23 20:30 91 H 04/10/23 20:30 83 132/63 04/10/23 20:25 90 97 04/10/23 20:20 88 96 04/10/23 20:21 90 132/62 04/10/23 20:15 91 H 96 04/10/23 20:10 96 04/10/23 20:10 92 H 04/10/23 20:10 88 141/65 H 93 04/10/23 20:05 97 H 97 04/10/23 20:00 96 H 129/58 L 96 04/10/23 19:55 93 H 97 04/10/23 19:50 90 135/69 99 04/10/23 19:45 86 97 04/10/23 19:39 91 H 148/68 H 04/10/23 19:24 89 162/68 H 04/10/23 18:46 86 166/84 H 04/10/23 18:33 90 177/85 H 04/10/23 18:16 88 169/85 H 04/10/23 18:03 86 175/84 H 04/10/23 18:02 91 H 191/85 H 04/10/23 17:46 90 149/73 H 04/10/23 17:31 90 152/80 H 04/10/23 17:16 96 H 147/74 H 04/10/23 16:59 92 H 179/80 H Coding Level of Care Code None Diagnoses Pre-eclampsia, severe O14.10 Insulin controlled gestational diabetes mellitus (GDM) during O24.414 Polyhydramnios O40.9XX0 GBS carrier Z22.330
--- NOTE | 2023-04-11 08:19 | Labor Progress Brief Note ---
Date of Service April 11, 2023 Subjective comfortable w/ epidural again Assessment & Plan (1) Pre-eclampsia, severe: (2) Insulin controlled gestational diabetes mellitus (GDM) during : (3) Polyhydramnios: (4) GBS carrier: Plan 37 yo at [facility] admitted with pre-eclampsia w/ SF -PET w/ SF - BPsnormal to mild range, UOP adequate. Continue mag -Fetus cat 2 but reassuring variability -Labor - pit at 22, progress noted. Continue augmentation, cervix very anterior. Will continue repositioning -A2GDM - q2hr BG, q1hr active - wnl -GBS+, pcn ordered -epidural in place Admission and Anticipated Discharge Date Admission Date: April 10, 2023 Physical Exam Genitourinary: Manual OB Exam: + cervical dilation (5.5), + cervical effacement 70% and + station -1 OB Exam Monitor Tracing: + external FHT monitor used, + external uterine monitor used (q4-5) and + category II (130/mod/+accel/variables) Results & Data Vital Signs (Past 12 Hours) Vital Signs Temp Pulse Resp BP Pulse Ox O2 Del Method 04/11/23 07:00 98.1 F 04/11/23 07:00 20 04/11/23 07:00 Room Air 04/11/23 03:00 20 04/10/23 23:00 20 04/11/23 08:13 85 166/81 H 04/11/23 08:10 90 100 04/11/23 08:05 90 100 04/11/23 08:00 90 96 04/11/23 07:58 82 142/72 H 04/11/23 07:55 82 100 04/11/23 07:50 87 98 04/11/23 07:45 81 100 04/11/23 07:43 84 144/70 H 04/11/23 07:40 84 100 04/11/23 07:35 88 100 04/11/23 07:30 90 100 04/11/23 07:27 85 136/63 04/11/23 07:25 87 100 04/11/23 07:20 91 H 97 04/11/23 07:21 94 H 93 04/11/23 07:15 94 H 100 04/11/23 07:13 100 H 139/87 04/11/23 07:10 91 H 100 04/11/23 07:07 93 H 92 04/11/23 07:05 91 H 100 04/11/23 06:37 16 04/11/23 06:37 98.6 F 16 04/11/23 07:00 88 100 04/11/23 06:57 86 141/76 H 04/11/23 06:55 91 H 100 04/11/23 06:50 86 100 04/11/23 06:45 87 100 04/11/23 06:43 85 147/75 H 04/11/23 06:37 16 04/11/23 06:37 16 04/11/23 06:40 92 H 98 04/11/23 06:35 84 100 04/11/23 06:30 85 98 04/11/23 06:28 88 140/76 04/11/23 06:25 87 97 04/11/23 06:20 85 97 04/11/23 06:15 89 97 04/11/23 06:12 85 140/77 04/11/23 06:10 85 98 04/11/23 06:05 89 96 04/11/23 06:04 89 94 04/11/23 06:00 86 96 04/11/23 05:57 86 139/74 94 04/11/23 05:55 86 95 04/11/23 05:50 84 97 04/11/23 05:45 87 96 04/11/23 05:42 87 139/77 92 04/11/23 05:40 84 97 04/11/23 05:35 84 98 04/11/23 05:30 84 98 04/11/23 05:28 86 134/71 04/11/23 05:25 86 97 04/11/23 05:20 90 97 04/11/23 05:15 96 H 99 04/11/23 05:14 91 H 94 04/11/23 05:12 85 106/52 L 04/11/23 05:10 91 H 95 04/11/23 05:08 88 94 04/11/23 05:05 85 97 04/11/23 05:00 91 H 97 04/11/23 04:57 90 117/58 L 04/11/23 04:55 91 H 97 04/11/23 04:45 16 04/11/23 04:45 16 04/11/23 04:50 91 H 98 04/11/23 04:45 92 H 16 98 04/11/23 04:44 95 H 93 04/11/23 04:42 94 H 123/61 04/11/23 04:40 93 H 98 04/11/23 04:28 18 04/11/23 04:28 98.6 F 18 04/11/23 04:35 93 H 99 04/11/23 04:30 92 H 99 04/11/23 04:27 98 H 120/60 04/11/23 04:25 94 H 98 04/11/23 04:20 98 H 98 04/11/23 04:15 100 H 98 04/11/23 04:12 97 H 114/57 L 92 04/11/23 04:10 92 H 97 04/11/23 04:05 95 H 97 04/11/23 04:00 101 H 18 97 04/11/23 03:58 98 H 120/57 L 04/11/23 03:57 105 H 92 04/11/23 03:55 101 H 97 04/11/23 03:50 96 H 98 04/11/23 03:45 101 H 98 04/11/23 03:42 96 H 118/59 L 04/11/23 03:40 95 H 98 04/11/23 03:35 102 H 97 04/11/23 03:30 96 H 18 96 04/11/23 03:27 96 H 116/55 L 04/11/23 03:25 93 H 97 04/11/23 03:20 99 H 97 04/11/23 03:15 96 H 96 04/11/23 03:14 92 H 120/57 L 04/11/23 03:10 98 H 97 04/11/23 03:05 99 H 97 04/11/23 03:00 101 H 98 04/11/23 02:56 97 H 118/56 L 04/11/23 02:55 99.0 F 94 H 20 98 04/11/23 02:50 104 H 97 04/11/23 02:45 97 H 96 04/11/23 02:42 99 H 121/58 L 04/11/23 02:40 108 H 97 04/11/23 02:35 103 H 97 04/11/23 02:30 111 H 96 04/11/23 02:25 99 H 97 04/11/23 02:26 99 H 111/54 L 04/11/23 02:22 99 H 118/59 L 04/11/23 02:20 108 H 96 04/11/23 02:21 105 H 93 04/11/23 02:16 97 H 124/57 L 04/11/23 02:15 103 H 97 04/11/23 02:10 96 H 96 04/11/23 02:11 102 H 109/55 L 04/11/23 02:06 98 H 116/57 L 04/11/23 02:05 96 H 98 04/11/23 02:00 107 H 16 98 04/11/23 02:01 110 H 91/53 L 04/11/23 01:55 100 H 97 04/11/23 01:56 101 H 118/55 L 04/11/23 01:50 101 H 98 04/11/23 01:51 105 H 109/58 L 93 04/11/23 01:45 100 H 97 04/11/23 01:46 100 H 110/58 L 04/11/23 01:40 98 H 98 04/11/23 01:41 99 H 105/56 L 04/11/23 01:35 99 H 99/56 L 98 04/11/23 01:33 114 H 99/65 L 04/11/23 01:31 114 H 95/63 L 04/11/23 01:30 113 H 98 04/11/23 01:29 120 H 93/60 L 04/11/23 01:25 111 H 99 04/11/23 01:26 114 H 110/64 04/11/23 01:23 72 82/48 L 04/11/23 01:20 99 04/11/23 01:20 65 04/11/23 01:20 76 82/45 L 04/11/23 01:18 74 83/44 L 04/11/23 01:15 64 99 04/11/23 01:10 61 99 04/11/23 01:01 18 04/11/23 01:01 18 04/11/23 01:05 74 99 04/11/23 01:04 68 90/51 L 04/11/23 01:02 64 93 04/11/23 01:00 68 98 04/11/23 00:55 79 100 04/11/23 00:50 100 04/11/23 00:50 102 H 04/11/23 00:50 93 H 126/67 04/11/23 00:48 82 89 L 04/11/23 00:45 16 04/11/23 00:45 68 16 100 04/11/23 00:30 16 04/11/23 00:30 16 04/11/23 00:40 67 100 04/11/23 00:35 80 100 04/11/23 00:33 76 106/57 L 04/11/23 00:30 77 98 04/11/23 00:29 73 87 L 04/11/23 00:26 70 108/61 04/11/23 00:25 70 100 04/11/23 00:20 70 100 04/11/23 00:18 75 108/60 04/11/23 00:15 79 16 100 04/11/23 00:13 72 108/59 L 04/11/23 00:10 81 100 04/11/23 00:07 84 110/59 L 04/11/23 00:05 85 18 98 04/11/23 00:04 85 114/65 04/11/23 00:02 85 91 04/11/23 00:03 75 107/58 L 04/11/23 00:00 83 18 100 04/10/23 23:59 96 H 208/158 H 04/10/23 23:56 78 94 04/10/23 23:55 74 95 04/10/23 23:50 88 93 04/10/23 23:51 85 91 04/10/23 23:45 88 93 04/10/23 23:40 78 99 04/10/23 23:35 100 04/10/23 23:35 79 04/10/23 23:35 77 94 04/10/23 23:30 80 100 04/10/23 23:26 74 114/56 L 04/10/23 23:25 74 100 04/10/23 23:24 73 91 04/10/23 23:20 82 100 04/10/23 23:15 74 100 04/10/23 23:10 81 100 04/10/23 23:05 80 100 04/10/23 23:00 98.2 F 81 20 99 04/10/23 22:55 81 95 04/10/23 22:50 83 98 04/10/23 22:45 77 97 04/10/23 22:40 83 100 04/10/23 22:35 97 H 98 04/10/23 22:30 90 97 04/10/23 22:25 98 04/10/23 22:25 87 04/10/23 22:25 86 116/58 L 04/10/23 22:20 92 H 98 04/10/23 22:15 87 99 04/10/23 22:10 88 97 04/10/23 22:01 18 04/10/23 22:01 18 04/10/23 22:05 92 H 96 04/10/23 22:00 90 98 04/10/23 21:55 97 H 98 04/10/23 21:50 90 98 04/10/23 21:45 92 H 98 04/10/23 21:39 18 04/10/23 21:39 18 04/10/23 21:40 91 H 97 04/10/23 21:35 94 H 98 04/10/23 21:30 91 H 98 04/10/23 21:25 91 H 98 04/10/23 21:22 92 H 142/64 H 04/10/23 21:20 91 H 97 04/10/23 21:15 96 H 99 04/10/23 20:30 18 04/10/23 20:30 18 04/10/23 21:10 90 100 04/10/23 21:09 89 156/66 H 04/10/23 21:05 87 98 04/10/23 21:00 89 99 04/10/23 20:55 94 H 99 04/10/23 20:53 93 H 138/64 04/10/23 20:50 94 H 99 04/10/23 20:45 92 H 18 98 04/10/23 20:40 91 H 99 04/10/23 20:35 91 H 98 04/10/23 20:30 98 04/10/23 20:30 91 H 04/10/23 20:30 83 132/63 04/10/23 20:25 90 97 04/10/23 20:20 88 96 04/10/23 20:21 90 132/62 Coding Level of Care Code None Diagnoses Pre-eclampsia, severe O14.10 Insulin controlled gestational diabetes mellitus (GDM) during O24.414 Polyhydramnios O40.9XX0 GBS carrier Z22.330
--- NOTE | 2023-04-11 10:11 | Delivery Summary ---
Vaginal Delivery Summary Date of Service April 11, 2023 Vaginal Delivery Summary [facility] Vaginal Delivery Summary: Pre-delivery diagnoses: 37yo @ 36 04/12, IOL for preeclampsia with severe features, AMA, obesity, h/o shoulder dystocia, GDMA2 Post-delivery diagnoses: same Procedure: spontaneous vaginal delivery Surgeon: Elvira Coelho DO Complications: none Findings: Viable female . Apgars and weight pending, please see nursery records. Estimated blood loss: 300ml Description of delivery: The patient progressed to complete with epidural anesthesia. She then began to push. She spontaneously vaginally delivered a viable from the cephalic presentation. The head delivered in [place] position. Nuchal x 1, reduced. The anterior shoulder delivered, followed by the posterior shoulder, followed by the body. The baby was placed on mother's abdomen and a spontaneous cry was heard. Delayed cord clamping was employed, and the cord was doubly clamped and cut. A segment was retained for cord gases. True knot noted in umbilical cord. Cord blood was obtained. The placenta was delivered spontaneously intact with a 3-vessel cord. The uterus and vagina were swept of clots and debris. IV pitocin was given. The uterus became firm. The cervix, vagina, and perineum were inspected and no lacerations were noted. Excellent hemostasis was observed. The mother and baby are recovering in stable and good condition in the room. Sponge and instrument counts were correct x 2. El[facility] Charge Vaginal Delivery Codes: 92808 global code for the antepartum, delivery, and post- Delivery Type Details: [facility]
--- NOTE | 2023-04-11 10:23 | Anesthesia Procedure Note ---
Date of Service April 11, 2023 Anesthesia Post Epidural Note Vital Signs Vital Signs: Temp Pulse Resp BP Pulse Ox O2 Del Method 37.0 C 94 H 20 133/63 92 Room Air 04/11/23 09:00 04/11/23 10:12 04/11/23 09:00 04/11/23 10:12 04/11/23 09:57 04/11/23 07:00 Pain Intensity Abdomen: Pain Intensity: 7 Notes Mental Status: alert / awake / arousable and participated in evaluation Nausea / Vomiting: adequately controlled Pain: adequately controlled Airway Patency, RR, SpO2: stable & adequate BP & HR: stable & adequate Hydration State: stable & adequate Neuraxial Anesthesia: was administered and sensory block is resolving Anesthetic Complications: no major complications apparent Epidural: Removed without complications and With tip intact
[2023-04-11 10:43] LABS: Cord Venous Blood HCO3 23 mmol/L (18.4-26.8); Cord Venous Blood PCO2 48 mmHg (30.4-57.2); Cord Venous Blood PO2 22 mmHg (14.1-43.3); Cord Venous Blood pH 7.29 (7.20-7.44); O2 Saturation Cord Venous Bld < 60.0 % (<68)
[2023-04-11 10:54] LABS: Base Excess Cord Arterial Bld -3.8 mEq/L (-9-1.8); CO2 Cord Arterial Blood 57 mmHg (39.1-73.5); HCO3 Cord Arterial Blood 24 mmol/L (19.7-28.5); Oxygen Sat Cord Arterial Blood < 60.0 % (<60); PO2 Cord Arterial Blood 16 mmHg (4.1-31.7); pH Cord Arterial Blood 7.24 (7.1-7.38)
[2023-04-11] MEDS ORDERED: bisacodyL 10 MG SUPP PR PRN (11:26)
[2023-04-11] MEDS ORDERED: HYDROCORTISONE ACETATE 25 MG SUPP PR PRN (11:26)
[2023-04-11] MEDS ORDERED: ACETAMINOPHEN 325 MG TAB PO PRN (11:26)
[2023-04-11] MEDS ORDERED: DIPHTHERIA/TETANUS/PERTUSSIS Vaccine (Tdap, Age 7+yrs) 0.5mL SYR/VL IM ONE (11:26)
[2023-04-11] MEDS ORDERED: OXYTOCIN 30 UNITS/500 ML BAG IV PRN (11:26)
[2023-04-11] MEDS ORDERED: BENZOCAINE 20% AER SPR 82.5 GM CAN EXT PRN (11:26)
[2023-04-11] MEDS: IBUPROFEN 600 MG TAB PO PRN (11:36)
[2023-04-11] MEDS ORDERED: oxyCODONE/ACETAMINOPHEN 5mg/325mg TAB PO PRN (13:06)
[2023-04-11] MEDS ORDERED: oxyCODONE/ACETAMINOPHEN 5mg/325mg TAB PO ONE (13:08)
[2023-04-11] MEDS: MAGNESIUM SULFATE / WTR 40 GM/1,000 ML BAG IV SCH (13:39)
[2023-04-11 18:19] LABS: Basophils # (auto) 0.03 K/uL (0-0.2); Basophils % (auto) 0.2 %; Eosinophils # (auto) 0.02 K/uL (0-0.50); Eosinophils % (auto) 0.1 %; Hematocrit (blood only) 34.2 % (37.0-47.0); Hemoglobin 11.5 g/dl (12.0-16.0); Immature Granulocytes # (auto) 0.06 K/uL (0.01-0.20); Immature Granulocytes % (auto) 0.4 %; Lymphocytes # (auto) 2.25 K/uL (1.2-3.4); Lymphocytes % (auto) 15.4 %; Mean Corpuscular Hemoglobin 27.8 pg (25.0-34.0); Mean Corpuscular Hgb Conc 33.6 g/dL (32.0-36.0); Mean Corpuscular Volume 82.6 fL (80.0-100.0); Mean Platelet Volume 12.3 fL (9.4-12.4); Monocytes # (auto) 0.84 K/uL (0.11-0.59); Monocytes % (auto) 5.7 %; Neutrophils # (auto) 11.41 K/uL (1.40-6.50); Neutrophils % (auto) 78.2 %; Platelet Count 202 K/uL (130-400); RDW Coefficient of Variation 13.7 % (11.5-14.5); RDW Standard Deviation 40.1 fL (36.4-46.3); Red Blood Count 4.14 M/uL (4.20-5.40); White Blood Count 14.61 K/ul (4.8-10.8)
[2023-04-11 18:36] LABS: Alanine Aminotransferase 12 U/L (7-52); Albumin Globulin Ratio 1.1 (0.9-2); Albumin Level 2.7 gm/dl (3.4-5.0); Alkaline Phosphatase 102 U/L (34-104); Anion Gap 8 (3-11); Aspartate Aminotransferase 20 U/L (13-39); BUN Creatinine Ratio 7.7 (10-20); Bilirubin,Total 0.3 mg/dl (0.2-1.0); Blood Urea Nitrogen 3 mg/dl (6-23); Carbon Dioxide 20 mmol/L (21-32); Chloride 107 mmol/L (98-107); Creatinine Clr Calc Pharmacy 230.7 ml/min; Est GFR (African American) > 150.0 ml/min; Est GFR (Non-African American) 136.1 ml/min; Globulin 2.4 gm/dl (2.5-4.0); Glucose 158 mg/dl (70-99(Fasting)); Magnesium 4.6 mg/dl (1.7-2.4); Potassium 3.7 mmol/L (3.5-5.1); Sodium 135 mmol/L (136-145); Total Protein 5.1 gm/dl (6.0-8.3)
[2023-04-11] MEDS ORDERED: CARBOPROST TROMETHAMINE 250 MCG/ML AMPUL IM ONE (19:37)
[2023-04-11] MEDS: DOCUSATE SODIUM 100 MG CAP PO SCH (20:53)
[2023-04-12] MEDS: LACTATED RINGER'S 1,000 ML IV PRN (02:47)
[2023-04-12] MEDS ORDERED: Nursing to Pharmacy Communication SCH (03:45)
[2023-04-12] MEDS ORDERED: MAGNESIUM SULFATE / WTR 40 GM/1,000 ML BAG IV SCH (04:00)
[2023-04-12 06:44] LABS: Hematocrit (blood only) 29.3 % (37.0-47.0); Hemoglobin 9.9 g/dl (12.0-16.0); Mean Corpuscular Hemoglobin 27.7 pg (25.0-34.0); Mean Corpuscular Hgb Conc 33.8 g/dL (32.0-36.0); Mean Corpuscular Volume 82.1 fL (80.0-100.0); Platelet Count 179 K/uL (130-400); RDW Standard Deviation 41.1 fL (36.4-46.3); Red Blood Count 3.57 M/uL (4.20-5.40); White Blood Count 9.76 K/ul (4.8-10.8)
--- NOTE | 2023-04-12 07:29 | Obstetrical Progress Note ---
Date of Service <Moise Cruz DO - Last Filed: 04/12/23 07:42> April 12, 2023 Assessment & Plan <Moise Cruz DO - Last Filed: 04/12/23 07:42> (1) Vaginal delivery: (2) Pre-eclampsia, severe: (3) Insulin controlled gestational diabetes mellitus (GDM) during : (4) Obesity: Plan - Feels well today. Eating well, Avila catheter in place - Blood pressure slightly elevated this morning, will continue on magnesium for 24 hours post vaginal delivery. - CBC and CMP mostly benign for preeclampsia overnight last night. We will continue to monitor. No signs and symptoms of seizures at this time. - Glucose remains at an acceptable range at this time. - Pain well controlled with ibuprofen 600mg Q4H PRN - Routine care -- OOB, ambulation, diet progression as tolerated - After discharge will have 6 week follow-up with Dr. Coelho. Day #:: 1 <Elvira Coelho, - Last Filed: 04/12/23 08:20> (1) Vaginal delivery: (2) Pre-eclampsia, severe: (3) Insulin controlled gestational diabetes mellitus (GDM) during : (4) Obesity: Subjective <Moise Cruz DO - Last Filed: 04/12/23 07:42> Ambulation: limited ambulation Voiding: avila catheter in place Passing Gas:: No Diet Tolerance:: regular diet Lochia:: Small Feeding Type:: bottle feeding Current Pain Level(1-10): 1 Review of Systems Denies fever, chills, sweats Denies shortness of breath, difficulty breathing, chest pain, palpitations, chest pressure. Denies breast pain. Denies dysuria. Denies headache or changes in vision. Physical Exam <Moise Cruz DO - Last Filed: 04/12/23 07:42> General: Alert, oriented. No acute distress. Cardiac: Regular rate and rhythm, no murmurs/rubs/gallops. Respiratory: Clear to auscultation bilaterally a/p, no wheezes/rales/rhonchi. No increased work of breathing. Symmetrical chest rise. No respiratory distress. Abdomen: Soft, nontender, nondistended. Bowel sounds present. Uterus: Uterine fundus firm, palpable 2 cm below umbilicus. Lower Extremities: No lower extremity edema or swelling. No deep calf pain. Manuela n's negative bilaterally. Results & Data <Moise Cruz, DO - Last Filed: 04/12/23 07:42> Vital Signs (Past 12 Hours) Vital Signs Temp Pulse Resp BP Pulse Ox 04/12/23 07:05 18 04/12/23 06:00 18 04/12/23 04:30 18 04/12/23 02:30 18 04/12/23 03:30 36.8 C 18 04/12/23 03:30 18 04/12/23 01:30 16 04/12/23 00:30 16 04/11/23 23:30 36.9 C 20 04/11/23 23:30 20 04/11/23 22:30 18 04/11/23 21:30 16 04/11/23 20:30 18 04/11/23 19:30 36.9 C 89 18 100 04/11/23 19:30 18 04/12/23 07:23 82 100 04/12/23 07:18 84 100 04/12/23 07:13 87 100 04/12/23 07:08 80 100 04/12/23 07:03 85 100 04/12/23 06:59 82 157/74 H 04/12/23 06:58 85 100 04/12/23 06:53 81 100 04/12/23 06:48 82 99 04/12/23 06:46 83 160/76 H 04/12/23 06:43 80 100 04/12/23 06:38 82 100 04/12/23 06:33 82 100 04/12/23 06:28 80 100 04/12/23 06:23 92 H 99 04/12/23 06:18 79 100 04/12/23 06:13 78 99 04/12/23 06:08 78 99 04/12/23 06:03 83 98 04/12/23 05:58 77 100 04/12/23 05:53 75 99 04/12/23 05:48 77 99 04/12/23 05:46 74 136/80 04/12/23 05:43 81 98 04/12/23 05:38 84 96 04/12/23 05:33 79 97 04/12/23 05:28 78 95 04/12/23 05:24 73 88 L 04/12/23 05:23 80 98 04/12/23 05:18 74 97 04/12/23 05:13 80 99 04/12/23 05:08 78 98 04/12/23 05:03 78 98 04/12/23 04:58 77 98 04/12/23 04:53 81 98 04/12/23 04:48 81 98 04/12/23 04:46 82 139/74 04/12/23 04:43 83 99 04/12/23 04:38 84 98 04/12/23 04:33 98 H 97 04/12/23 04:30 84 20 89 L 04/12/23 04:28 82 98 04/12/23 04:23 81 90 04/12/23 04:20 85 88 L 04/12/23 04:18 84 97 04/12/23 04:14 86 88 L 04/12/23 04:13 87 94 04/12/23 04:08 81 99 04/12/23 04:03 79 98 04/12/23 03:58 80 99 04/12/23 03:53 86 98 04/12/23 03:48 83 99 04/12/23 03:46 85 124/60 04/12/23 03:43 83 99 04/12/23 03:38 82 100 04/12/23 03:33 87 100 04/12/23 03:28 81 100 04/12/23 03:27 84 89 L 04/12/23 03:23 81 100 04/12/23 03:18 82 100 04/12/23 03:13 90 100 04/12/23 03:08 86 98 04/12/23 03:03 78 100 04/12/23 02:58 83 98 04/12/23 02:53 86 98 04/12/23 02:48 89 99 04/12/23 02:46 87 134/62 04/12/23 02:43 80 96 04/12/23 02:38 80 97 04/12/23 02:33 77 97 04/12/23 02:28 79 96 04/12/23 02:23 80 97 04/12/23 02:18 79 97 04/12/23 02:13 81 98 04/12/23 02:08 78 99 04/12/23 02:03 81 100 0607/23 01:58 81 100 04/12/23 01:53 81 99 04/12/23 01:48 81 99 04/12/23 01:46 82 128/66 04/12/23 01:43 84 100 04/12/23 01:38 82 99 04/12/23 01:33 80 98 04/12/23 01:28 82 98 04/12/23 01:23 81 98 04/12/23 01:18 82 99 04/12/23 01:13 84 98 04/12/23 01:08 84 99 04/12/23 01:03 89 98 04/12/23 00:58 84 95 04/12/23 00:53 82 98 04/12/23 00:48 84 98 04/12/23 00:46 82 126/61 04/12/23 00:43 90 98 04/12/23 00:38 83 98 04/12/23 00:33 82 98 04/12/23 00:28 84 98 04/12/23 00:23 84 98 04/12/23 00:18 84 98 04/12/23 00:13 84 98 04/12/23 00:08 87 98 04/12/23 00:03 86 99 04/11/23 23:58 84 100 04/11/23 23:53 81 100 04/11/23 23:49 89 94 04/11/23 23:48 86 100 04/11/23 23:45 85 137/73 04/11/23 23:22 83 99 04/11/23 23:17 84 99 04/11/23 23:14 86 128/67 04/11/23 23:12 83 98 04/11/23 23:07 81 97 04/11/23 23:02 80 97 04/11/23 22:57 86 97 04/11/23 22:52 87 97 04/11/23 22:50 73 91 04/11/23 22:47 85 97 04/11/23 22:44 82 06 22:44 87 131/61 92 04/11/23 22:42 82 97 04/11/23 22:37 87 97 04/11/23 22:34 90 94 04/11/23 22:32 86 97 04/11/23 22:27 86 97 04/11/23 22:22 87 97 06/06/23 22:17 85 97 04/11/23 22:14 86 120/66 04/11/23 22:12 84 97 04/11/23 22:07 86 97 04/11/23 22:02 86 97 04/11/23 21:57 87 97 04/11/23 21:52 85 98 04/11/23 21:47 91 H 98 04/11/23 21:44 86 117/65 04/11/23 21:42 86 97 04/11/23 21:37 88 98 04/11/23 21:32 85 98 04/11/23 21:27 87 98 04/11/23 21:22 89 98 04/11/23 21:17 89 98 04/11/23 21:14 87 114/56 L 04/11/23 21:12 87 98 04/11/23 21:07 87 99 04/11/23 21:02 88 99 04/11/23 20:57 87 99 04/11/23 20:52 88 99 04/11/23 20:47 91 H 99 04/11/23 20:44 90 148/76 H 04/11/23 20:42 91 H 100 04/11/23 20:37 97 H 100 04/11/23 20:32 91 H 100 04/11/23 20:27 90 100 04/11/23 20:22 91 H 100 04/11/23 20:17 92 H 100 04/11/23 20:14 90 140/75 04/11/23 20:12 91 H 100 04/11/23 20:07 92 H 100 04/11/23 20:02 92 H 100 04/11/23 19:57 91 H 100 04/11/23 19:52 92 H 100 04/11/23 19:47 93 H 100 04/11/23 19:44 91 H 136/84 04/11/23 19:42 92 H 100 04/11/23 19:37 91 H 100 04/11/23 19:32 89 100 04/11/23 19:31 105 H 88 L Laboratory Results 04/12/23 06:17 04/11/23 17:46 <Elvira Coelho, DO - Last Filed: 04/12/23 08:20> Co-Signing Physician Notes Resident Physician Supervision Note: I was present with Dr. Cruz during the history and exam. I discussed the case with the resident and agree with the findings and plan as documented in the note. Any exceptions or clarifications are listed here: PPD#1 doing well. Will plan to stop magnesium at 24h past delivery, will continue to monitor BPs today. Documented By: Elvira Coelho DO Resident Activity Tracking <Moise Cruz DO - Last Filed: 04/12/23 07:42> Resident Involvement: Resident Care Provided Care Provided: OB Delivery
[2023-04-12] MEDS: IBUPROFEN 600 MG TAB PO PRN ×2 (09:20→20:19)
[2023-04-12] MEDS: PRENATAL VITAMIN 1 TAB PO SCH (09:20)
[2023-04-12] MEDS: DOCUSATE SODIUM 100 MG CAP PO SCH ×2 (09:20→20:19)
[2023-04-12] MEDS: LORATADINE 10 MG TAB PO SCH (09:41)
[2023-04-12] MEDS: PANTOprazole 40 MG TAB PO SCH ×2 (10:25→20:19)
[2023-04-12] MEDS ORDERED: bisacodyL 5 MG TABEC PO SCH (20:00)
[2023-04-13] MEDS: IBUPROFEN 600 MG TAB PO PRN ×2 (04:53→21:11)
[2023-04-13 06:22] LABS: Hematocrit (blood only) 31.5 % (37.0-47.0); Hemoglobin 10.3 g/dl (12.0-16.0)
--- NOTE | 2023-04-13 06:56 | Obstetrical Progress Note ---
Date of Service <Moise Cruz DO - Last Filed: 04/13/23 07:15> April 13, 2023 Assessment & Plan <Moise Cruz DO - Last Filed: 04/13/23 07:15> (1) Vaginal delivery: (2) Pre-eclampsia, severe: (3) Insulin controlled gestational diabetes mellitus (GDM) during : (4) Obesity: Plan - Feels well today. Eating well, Ferrer catheter in place - Initially admitted with preeclampsia symptoms, no signs or symptoms of preeclampsia at this time. Completed 24 hours of magnesium postdelivery - Blood pressure slightly elevated this morning at 146/85, will continue to monitor throughout this morning. - Pain well controlled with ibuprofen 600mg Q4H PRN - Routine care -- OOB, ambulation, diet progression as tolerated - After discharge will have 6 week follow-up with Dr. Coelho. - Will DC later today as long as blood pressure remains stable. Day #:: 1 <Brittany Elizondo MD, FACOG - Last Filed: 04/13/23 07:20> (1) Vaginal delivery: (2) Pre-eclampsia, severe: (3) Insulin controlled gestational diabetes mellitus (GDM) during : (4) Obesity: Subjective <Moise Cruz DO - Last Filed: 04/13/23 07:15> Ambulation: ambulating normally Voiding: no voiding problems Passing Gas:: Yes Diet Tolerance:: regular diet Lochia:: Small Feeding Type:: bottle feeding Current Pain Level(1-10): 0 Review of Systems Denies fever, chills, sweats Denies shortness of breath, difficulty breathing, chest pain, palpitations, chest pressure. Denies breast pain. Denies dysuria. Denies headache or changes in vision. Physical Exam <Moise Cruz DO - Last Filed: 04/13/23 07:15> General: Alert, oriented. No acute distress. Cardiac: Regular rate and rhythm, no murmurs/rubs/gallops. Respiratory: Clear to auscultation bilaterally a/p, no wheezes/rales/rhonchi. No increased work of breathing. Symmetrical chest rise. No respiratory distress. Abdomen: Soft, nontender, nondistended. Bowel sounds present. Uterus: Uterine fundus firm, palpable 2 cm below umbilicus. Lower Extremities: No lower extremity edema or swelling. No deep calf pain. Calvin's negative bilaterally. Results & Data <Moise Cruz DO - Last Filed: 04/13/23 07:15> Vital Signs (Past 12 Hours) Vital Signs Temp Pulse Resp BP Pulse Ox O2 Del Method 04/13/23 04:50 36.5 C 78 18 146/85 H 04/12/23 23:50 36.9 C 83 18 117/70 04/12/23 20:20 36.9 C 83 18 138/86 98 Room Air <Brittany Elizondo MD, FACOG - Last Filed: 04/13/23 07:20> Co-Signing Physician Notes Resident Physician Supervision Note: I interviewed and examined the patient. Discussed with Dr. Cruz and agree with findings and plan as documented in the note. Any exceptions or clarifications are listed here: Doing well. No s/s of pet. Slightly elevated blood pressure this am. Will watch through the morning and consider d/c in afternoon if pressures ok . BP check in the office on Monday. Documented By: Brittany Elizondo MD, FACOG Resident Activity Tracking <Moise Cruz DO - Last Filed: 04/13/23 07:15> Resident Involvement: Resident Care Provided Care Provided: OB Delivery
[2023-04-13] MEDS: DOCUSATE SODIUM 100 MG CAP PO SCH ×2 (07:37→21:11)
[2023-04-13] MEDS: PANTOprazole 40 MG TAB PO SCH ×2 (07:37→21:37)
[2023-04-13] MEDS: LORATADINE 10 MG TAB PO SCH (07:37)
[2023-04-13] MEDS: PRENATAL VITAMIN 1 TAB PO SCH (07:37)
--- NOTE | 2023-04-14 07:42 | Obstetrical Progress Note ---
Date of Service April 14, 2023 Assessment & Plan (1) Vaginal delivery: (2) Pre-eclampsia, severe: (3) Insulin controlled gestational diabetes mellitus (GDM) during : (4) Obesity: Plan - Feels well today. Eating well, Ferrer catheter in place - Initially admitted with preeclampsia symptoms, no signs or symptoms of preeclampsia at this time. Completed 24 hours of magnesium postdelivery - Blood pressure improved at this time. - Pain well controlled with ibuprofen 600mg Q4H PRN - Routine care -- OOB, ambulation, diet progression as tolerated - After discharge will have 6 week follow-up with Dr. Coelho. - DC today. Day #:: 3 Subjective Ambulation: ambulating normally Voiding: no voiding problems Passing Gas:: Yes Diet Tolerance:: regular diet Lochia:: Small Feeding Type:: bottle feeding Current Pain Level(1-10): 0 Review of Systems Denies fever, chills, sweats Denies shortness of breath, difficulty breathing, chest pain, palpitations, chest pressure. Denies breast pain. Denies dysuria. Denies headache or changes in vision. Physical Exam General: Alert, oriented. No acute distress. Cardiac: Regular rate and rhythm, no murmurs/rubs/gallops. Respiratory: Clear to auscultation bilaterally a/p, no wheezes/rales/rhonchi. No increased work of breathing. Symmetrical chest rise. No respiratory distress. Abdomen: Soft, nontender, nondistended. Bowel sounds present. Uterus: Uterine fundus firm, palpable 2 cm below umbilicus. Lower Extremities: No lower extremity edema or swelling. No deep calf pain. Calvin's negative bilaterally. Results & Data Vital Signs (Past 12 Hours) Vital Signs Temp Pulse Resp BP Pulse Ox O2 Del Method 04/13/23 22:55 36.8 C 77 18 133/79 99 Room Air Resident Activity Tracking Resident Involvement: Resident Care Provided Care Provided: OB Delivery
[2023-04-14] MEDS: DOCUSATE SODIUM 100 MG CAP PO SCH (08:00)
[2023-04-14] MEDS: IBUPROFEN 600 MG TAB PO PRN (08:00)
[2023-04-14] MEDS: PRENATAL VITAMIN 1 TAB PO SCH (08:00)
[2023-04-14] MEDS: LORATADINE 10 MG TAB PO SCH (10:20)
[2023-04-14] MEDS: PANTOprazole 40 MG TAB PO SCH (10:20)
== END 2023-04-14 12:35 | disposition home or self-care (01) | DRG 807 ==
LOC: OPB 16:48 → 4S1 16:49 → 4E2 04-12 11:55